=== PATIENT | female | born 1950 | race Caucasian/White ===

== ENCOUNTER 2019-10-10 19:27 | Emergency (ER) | payer SELFPAY ==
[~2019-10-10] VITALS: Ht 160 cm; Wt 64.0 kg
[2019-10-10] MEDS ORDERED: OXYMETAZOLINE HCL NASAL SPRAY 15ML BOTHNSTRLS STA (19:40)
[2019-10-10 21:32] VITALS: BP 133/55
== END 2019-10-10 21:47 | disposition home or self-care (01) ==
LOC: ER 19:27
DX: R04.0 Epistaxis (principal); I10 Essential (primary) hypertension; E11.9 Type 2 diabetes mellitus without complications
CPT/HCPCS: 99283; Z7610